=== PATIENT | female | born 1955 | race Caucasian/White ===

== ENCOUNTER 2017-01-25 15:03 | Emergency (ER) | payer OTHER ==
[2017-01-25 15:33] VITALS: BMI 24.2
[2017-01-25 16:00] LABS: URINE APPEARANCE CLEAR; URINE BILIRUBIN NEGATIVE (NEGATIVE); URINE BLOOD NEGATIVE (NEGATIVE); URINE COLOR STRAW; URINE GLUCOSE (UA) NEGATIVE (NEGATIVE); URINE KETONE 1+ (NEGATIVE); URINE LEUK ESTERASE NEGATIVE (NEGATIVE); URINE NITRITE NEGATIVE (NEGATIVE); URINE PROTEIN NEGATIVE (NEGATIVE); URINE UROBILINOGEN NEGATIVE E.U./dl (0.2-1.0)
--- NOTE | 2017-01-25 16:24 | PDOC ---
History of Present Illness - General History Source: Patient Exam Limitations: No Limitations <Stephon Mallory - Last Filed: 01/25/17 19:47> - General History Source: Patient Exam Limitations: No Limitations - History of Present Illness Initial Comments: 01/25/17 17:01 The patient is a 61 year old female, with a significant past medical history of asthma, left breast CA s/p left sided mastectomy and CVA, who presents to the emergency department with intermittent right suprapubic pain and RLQ pain since yesterday. The patient describes neftali pain as sharp and states that it lasts a couple of seconds before resolving. The patient reports taking Tylenol for her symptoms, with some relief. The patient denies fever, chills, nausea, vomiting, diarrhea or any dysuria. The patient is refusing blood work today in the ED as she states she had bloodwork done at her doctors office yesterday. Allergies: None reported. Past Surgical History: Left Mastectomy. Social History: Non smoker. Denies alcohol or drug use. PCP: Dr. Dee Jernigan <Mena Grajeda - Last Filed: 01/25/17 19:52> - General Chief Complaint: Pain, Acute Stated Complaint: ABD PAIN Time Seen by Provider: 01/25/17 15:29 Past History - Past Medical History Asthma: Yes Cancer: Yes (LEFT BREAST MASECTOMY) CVA: Yes (RT SIDED WEAKNESS) - Psycho/Social/Smoking Cessation Hx Suicidal Ideation: No Smoking History: Never smoked <Stephon Mallory - Last Filed: 01/25/17 19:47> <Mena Grajeda - Last Filed: 01/25/17 19:52> - Past Medical History Allergies/Adverse Reactions: Allergies Allergy/AdvReac Type Severity Reaction Status Date / Time No Known Allergies Allergy Verified 01/25/17 15:29 Review of Systems - Review of Systems Able to Perform ROS?: Yes Comments:: 01/25/17 17:01 GENERAL/CONSTITUTIONAL: No fever or chills. No weakness. HEAD, EYES, EARS, NOSE AND THROAT: No change in vision. No ear pain or discharge. No sore throat. CARDIOVASCULAR: No chest pain or shortness of breath. RESPIRATORY: No cough, wheezing, or hemoptysis. GASTROINTESTINAL: +Right suprapubic pain, RLQ pain. No nausea, vomiting, diarrhea or constipation. GENITOURINARY: No dysuria, frequency, or change in urination. MUSCULOSKELETAL: No joint or muscle swelling or pain. No neck or back pain. SKIN: No rash. NEUROLOGIC: No headache, vertigo, loss of consciousness, or change in strength/ sensation. ENDOCRINE: No increased thirst. No abnormal weight change. HEMATOLOGIC/LYMPHATIC: No anemia, easy bleeding, or history of blood clots. ALLERGIC/IMMUNOLOGIC: No hives or skin allergy. <Mena Grajeda - Last Filed: 01/25/17 19:52> *Physical Exam - Vital Signs Last Vital Signs Temp Pulse Resp BP Pulse Ox 98.1 F 92 H 19 130/86 98 01/25/17 15:29 01/25/17 15:29 01/25/17 15:29 01/25/17 15:29 01/25/17 15:29 <Stephon Mallory - Last Filed: 01/25/17 19:47> - Vital Signs Last Vital Signs Temp Pulse Resp BP Pulse Ox 98.1 F 92 H 19 130/86 98 01/25/17 15:29 01/25/17 15:29 01/25/17 15:29 01/25/17 15:29 01/25/17 15:29 - Physical Exam Comments: 01/25/17 17:01 GENERAL: Awake, alert, and fully oriented, in no acute distress. HEAD: No signs of trauma. EYES: PERRLA, EOMI, sclera anicteric, conjunctiva clear. ENT: Auricles normal inspection, hearing grossly normal, nares patent, oropharynx clear without exudates. Moist mucosa. NECK: Normal ROM, supple, no lymphadenopathy, JVD, or masses. LUNGS: Breath sounds equal, clear to auscultation bilaterally. No wheezes, and no crackles. HEART: Regular rate and rhythm, normal S1 and S2, no murmurs, rubs or gallops. ABDOMEN: Very mild right suprapubic tenderness. Soft, normoactive bowel sounds. No guarding, no rebound. No masses. EXTREMITIES: Normal range of motion, no edema. No clubbing or cyanosis. No cords , erythema, or tenderness. NEUROLOGICAL: Cranial nerves II through XII intact. Normal speech, normal gait. SKIN: Warm, dry, normal turgor, no rashes or lesions noted. <Mena Grajeda - Last Filed: 01/25/17 19:52> ED Treatment Course - ADDITIONAL ORDERS Additional order review: Laboratory Results 01/25/17 15:45 Urine Color Straw Urine Appearance Clear Urine pH 7.0 Ur Specific [place] 1.011 Urine Protein Negative Urine Glucose (UA) Negative Urine Ketones 1+ H Urine Blood Negative Urine Nitrite Negative Urine Bilirubin Negative Urine Urobilinogen Negative Ur Leukocyte Esterase Negative - RADIOLOGY Radiology Studies Ordered: Category Date Time Status ABDOMEN & PELVIS CT W/O CONTR [CT] Stat CT Scan 01/25/17 16:20 Ordered <Stephon Mallory - Last Filed: 01/25/17 19:47> - ADDITIONAL ORDERS Additional order review: Laboratory Results 01/25/17 15:45 Urine Color Straw Urine Appearance Clear Urine pH 7.0 Ur Specific [place] 1.011 Urine Protein Negative Urine Glucose (UA) Negative Urine Ketones 1+ H Urine Blood Negative Urine Nitrite Negative Urine Bilirubin Negative Urine Urobilinogen Negative Ur Leukocyte Esterase Negative <Mena Grajeda - Last Filed: 01/25/17 19:52> Medical Decision Making - Medical Decision Making 01/25/17 16:20 A portion of this note was written by my scribe, under my supervision. Vital Signs Temp Pulse Resp BP Pulse Ox 98.1 F 92 H 19 130/86 98 01/25/17 15:29 01/25/17 15:29 01/25/17 15:29 01/25/17 15:29 01/25/17 15:29 61 year old female c/ hx of HTN, HLD, Left sided breast ca s/p left sided mastectomy, in remission p/w intermittent RLQ pain since yesterday. The patient reports it is intermittent and lasts for seconds. Sharp and R suprapubic and RLQ pain. Denies dysuria. She had visited her PMD yesterday who took her blood. Denies fevers, chills, nausea, vomiting, diarrhea. Pt came into ER today b/c symptoms were persistent. The patient here in the ED and absolutely refuses blood work. She reports that she had blood work done yesterday, and declines any blood work here. Despite length discussion, the patient again refuses. I had informed her that my ability to work her up will be limited. Will instead send a UA and CT abdomen and pelvis. The history is atypical for appendicitis, so I have low pretest probability. however, given age, and persistence of symptoms, will perform CT scan. Reassess. 01/25/17 19:43 CT scan of abdomen and pelvis reviewed. No acute findings. Pt feels reassured. Unclear what the etiology is at this point. Could be MSK. However, pt feels reassurred and would like to go home and follow up with PMD. Return precautions given. CT results given to the patient. I discussed the physical exam findings, ancillary test results and final diagnoses with the patient. I answered all of the patient's questions. The patient was satisfied with the care received and felt comfortable with the discharge plan and treatment plan. The patient will call their primary care physician within 24 hours to arrange follow-up and will return to the Emergency Department with any new, persistant or worsening symptoms. <Stephon Mallory - Last Filed: 01/25/17 19:47> - Medical Decision Making 01/25/17 19:52 EXAM: CT/ABDOMEN & PELVIS CT W/O CONTR Reviewed By: Dr. Ada Barrios IMPRESSION: No CT evidence of an acute process in the abdomen and pelvis. <Mena Grajeda - Last Filed: 01/25/17 19:52> *DC/Admit/Observation/Transfer - Discharge Dispostion Admit: No <Stephon Mallory - Last Filed: 01/25/17 19:47> - Attestations Scribe Attestion: 01/25/17 16:50 Documentation prepared by Mena Grajeda, acting as medical office technologist for Stephon Mallory MD. <Mena Grajeda - Last Filed: 01/25/17 19:52> Diagnosis at time of Disposition: Abdominal pain Qualifiers: Abdominal location: right lower quadrant Qualified Code(s): R10.31 - Right lower quadrant pain - Discharge Dispostion Disposition: HOME Condition at time of disposition: Good - Referrals Referrals: Dee Jernigan MD [Primary Care Provider] - - Patient Instructions Printed Discharge Instructions: DI for Abdominal Pain-Adult Additional Instructions: Your CT scan of the abdomen and pelvis is unremarkable. Please follow up with your doctor and give the copy of the CT results to her.
[2017-01-25 19:28] VITALS: BP 153/94; PULSE 86; TEMP 98.2
[2017-01-25] MEDS ORDERED: ACETAMINOPHEN 325 MG TABLET (FP) PO ONE (19:52)
[2017-01-25] MEDS ORDERED: ACETAMINOPHEN 325 MG TABLET (FP) ONE (19:57)
== END 2017-01-25 20:00 | disposition home or self-care (01) ==
LOC: JER 15:03
DX: R10.31 Right lower quadrant pain (principal); I10 Essential (primary) hypertension; E78.5 Hyperlipidemia, unspecified; I69.851 Hemiplegia and hemiparesis following other cerebrovascular disease affecting right dominant side; Z85.3 Personal history of malignant neoplasm of breast
CPT/HCPCS: 74176-TC; 81003; 99283-25